=== PATIENT | female | born 1980 | race Caucasian/White ===

== ENCOUNTER → 2024-01-22 14:36 | Outpatient (REF) | payer BC, SELFPAY | LOC: WDC 14:36 | PROVIDERS: ATTENDING PHYSICIAN Nurse Practitioner Adult Health | DX: Z12.31 Encounter for screening mammogram for malignant neoplasm of breast (principal) | CPT/HCPCS: 77063; 77067 ==

== ENCOUNTER 2024-12-16 23:46 | Emergency (ER) | payer BC, SELFPAY ==
[2024-12-16 23:54] VITALS: BP 136/90
[2024-12-17 00:13] LABS: Urine Albumin 3+ (Neg - Trace); Urine Bilirubin Negative (Negative); Urine Character Bloody (Clear); Urine Color Red; Urine Glucose Negative (Negative); Urine Ketone Negative (Negative); Urine Leukocyte 2+ (Negative); Urine Nitrite Negative (Negative); Urine Occult Blood 4+ (Negative); Urine Urobilinogen Negative (Neg - 1+)
[2024-12-17 00:22] LABS: HCG, Serum Qualitative Screen Negative
[2024-12-17 00:26] LABS: Urine Red Blood Cell >100 /HPF (0-2); Urine White Cell 0-2 /HPF (0-5)
[2024-12-17 00:34] LABS: ALT (SGPT) 20 U/L (0-35); AST (SGOT) 26 U/L (14-36); Albumin 4.2 g/dl (3.5-5.0); Alkaline Phosphatase 70 U/L (38-126); Blood Urea Nitrogen 15 mg/dl (7-17); Calcium 9.4 mg/dl (8.4-10.2); Carbon Dioxide 24 mmol/L (22-30); Chloride 110 mmol/L (98-107); Glucose 93 mg/dl (70-99); Potassium 4.7 mmol/L (3.5-5.1); Sodium 141 mmol/L (135-145); Total Bilirubin 0.5 mg/dl (0.2-1.3); Total Protein 7.1 g/dl (6.3-8.2); eGFR > 60.00
[2024-12-17 00:36] LABS: % Basophils 0.5 % (0-2); % Eosinophils 2.3 % (0-6); % Immature Granulocytes 0.3 % (0-0.5); % Monocytes 5.2 % (1.7-9.3); % Neutrophils 59.7 % (42.2-75.2); Absolute Basophils 0.1 10^3/uL (0-0.2); Absolute Eosinophils 0.3 10^3/uL (0-0.7); Absolute Lymphocytes 3.8 10^3/uL (1.2-3.4); Absolute Monocytes 0.6 10^3/uL (0.1-0.6); Absolute Neutrophils 7.2 10^3/uL (1.4-6.5); Hematocrit 36.8 % (37.0-47.0); Hemoglobin 12.1 g/dL (12.0-16.0); Mean Corp Hgb Conc. 32.9 g/dL (33.0-37.0); Mean Corpuscular Hgb 25.7 pg (27.0-31.0); Mean Corpuscular Volume 78.3 fL (81.0-99.0); Mean Platelet Volume 10.7 fL (7.4-10.4); Nucleated Red Blood Cells % 0 %; Platelet Count 322 10^3/uL (130-400); Red Cell Dist. Width 13.2 % (11.5-14.5)
[2024-12-17 00:49] VITALS: BMI 27.5
--- NOTE | 2024-12-17 01:01 | ED.GENMED ---
History of Present Illness
General
Chief Complaint: Flank Pain
Source: patient
Time Seen by Provider: 12/17/24 00:26
History of Present Illness
History of Present Illness:
44-year-old female presents to the emergency room complaining of right flank pain. Patient states she developed pain last evening in the right flank which radiated down to her pelvis. It was mild. She had some increased urinary frequency and
thought perhaps she was developing a urinary tract infection. She was able to sleep and felt somewhat better this morning but this evening the pain returned and was quite severe. Nothing seems to make it better or worse. She has not had a fever.
She is nauseous. Patient also currently has her menstrual period. She took Advil 200 mg with minimal improvement. No significant change in bowel habits
Past History
Past History
ED Past Medical History: Other (Crohn's disease, anemia)
ED Past Surgical History: Appendectomy, Bowel resection, and Other (Lysis of adhesions for small bowel obstruction, liposuction and)
Social History
Tobacco: Non-smoker
Alcohol: Occasional
Drug: None
Living: with family
Employment: Employed
Family History
Family History: Negative Diabetes, Hypertension, Early CAD, Asthma or Cancer
Phy Exam
Physical Exam
Physical Exam:
General: Awake, Alert, Oriented X3. No acute distress.
Vitals: unremarkable
Head: Atraumatic
Eyes: Pupils equal, EOMI
Throat: Airway intact, no exudates
Neck: Trachea midline
Lungs: Clear and equal b/l
Heart: Regular rate, no murmurs
Abd: Soft, no tenderness to palpation, No pulsatile mass
Back: Mild left flank pain to percussion
Neuro: Nonfocal
Skin: Warm, dry, no rash
Extremities: pulses equal b/l, no edema
Course
Orders/Labs/Results
Orders:
Orders
12/16/24 23:57
Complete Blood Count/With Diff Urgent
Comprehensive Metabolic Panel Urgent
HCG, Serum Qualitative Screen Urgent
Urinalysis Urgent
Date Specimen was Collected: 12/16/24
Time Specimen was Collected: 23:58
12/16/24 23:58
Test Result ONCE
12/17/24 00:05
Urine Microscopic Urgent
Date Specimen was Collected: 12/16/24
Time Specimen was Collected: 23:58
12/17/24 01:00
CT Abd/pel Without Iv Or Oral Urgent
Comment:
Reason For Exam: right flank pain
0.9% Sodium Chloride 1000 ml [Nss] 1,000 ml IV BOLUS
HYDROmorphone [Dilaudid] 0.5 mg IV NOW STA
Ketorolac [Toradol] 15 mg IV NOW STA
Ondansetron Injectable [Zofran] 4 mg IV NOW STA
12/17/24 04:02
Oxycodone [Roxicodone] 5 mg PO NOW STA
12/17/24 04:10
HYDROmorphone [Dilaudid] 0.5 mg IV NOW STA
Abnormal Lab Results
12/17/24 12/17/24
00:02 00:05
WBC 12.0 H 10^3/uL
(4.8-10.8)
Hct 36.8 L %
(37.0-47.0)
MCV 78.3 L fL
(81.0-99.0)
MCH 25.7 L pg
(27.0-31.0)
MCHC 32.9 L g/dL
(33.0-37.0)
MPV 10.7 H fL
(7.4-10.4)
Absolute Neuts (auto) 7.2 H 10^3/uL
(1.4-6.5)
Absolute Lymphs (auto) 3.8 H 10^3/uL
(1.2-3.4)
Chloride 110 H mmol/L
(98-107)
Urine Occult Blood 4+ A
(Negative)
Ur Leukocyte Esterase 2+ A
(Negative)
Urine RBC >100 A /HPF
(0-2)
Urine Albumin 3+ A
(Neg - Trace)
12/17/24 00:02
12/17/24 00:02
Vital Signs
Initial and Last Documented VS:
Initial Vital Signs
Temp Pulse Resp BP Pulse Ox
97.7 F 76 20 136/90 100
12/16/24 23:54 12/16/24 23:54 12/16/24 23:54 12/16/24 23:54 12/16/24 23:54
Last Documented Vital Signs
Temp Pulse Resp BP Pulse Ox
97.7 F 72 16 113/73 98
12/16/24 23:54 12/17/24 02:20 12/17/24 02:20 12/17/24 02:20 12/17/24 02:20
MDM/Problems Addressed
Differential Diagnosis Includes:
Kidney stone, pyelonephritis, Crohn's flare
MDM/Problems Addressed:
Patient presents with significant right-sided flank pain. CT shows a 3 mm stone at the right UVJ. Labs show mild elevated white blood cell count, urinalysis shows hematuria but no signs of infection. Patient had improvement of her symptoms with
antiemetics and analgesics. Patient is stable for discharge home with prescriptions for Zofran and Percocet. Percocet was given because the information that appeared on the prescription ordering screening indicated, as ridiculous as it sounds,
that the oxycodone itself was not covered Percocet will be covered by the patient's insurance.
*Radiology
Radiology exam reviewed: other (Vision report shows 3 mm stone at the UVJ with hydro)
*Pulse Oximetry
Patient hypoxic: no
*Critical Care Note
Total Time (30-74mins, 75-104mins- exclusive of procedures): Not Applicable
ED Attending Note
-
Portions of this chart may have been created with voice recognition software.� Occasional wrong word or��sound alike� substitutions may have occurred due to the inherent limitations of voice recognition software.
Discharge Plan
Departure
Patient Disposition: Home (Routine Discharge)
Date of Disposition: 12/17/24
Time of Disposition: 04:10
Patient with high blood pressure during this ER visit?: No
Condition: Good
Discharge Problem:
Kidney stone
Instructions: Kidney Stones (DC)
Prescriptions:
New
oxycodone-acetaminophen [Percocet] 5-325 mg tablet
1 tab PO Q4HPRN PRN (Reason: pain) Qty: 14 0RF
ondansetron 4 mg tablet,disintegrating
4 mg PO Q8H PRN (Reason: nausea and vomiting) Qty: 14 0RF
Referrals:
Yadira Zuniga CRNP [Family Provider] -
Shay Hunter MD [Active] -
Activity Restrictions/Additional Instructions:
You are found to have a 3 mm kidney stone in the right ureter. This stone is of a size that should pass on its own. It may take couple days for that to happen. I have sent a prescription for oral pain medicine, Percocet which you can take every
4-6 hours for severe pain. You can take ibuprofen 600 mg every 6 hours for pain. I have also sent a prescription for Zofran which you can take 1 tablet every 8 hours for nausea. I given you contact information for a urologist, Dr. Hunter, who you
should call in the morning to make an appointment. You should return to the emergency room if you develop a fever before you pass the stone because this is a surgical emergency.
Interventions
Interventions:
*Risk Screen - Suicide Last Done: 12/16/24 23:54
*General Assessment Last Done: 12/17/24 01:24
*Neglect/Abuse Screening Last Done: 12/16/24 23:54
*ED COVID-19 Vaccine History Last Done: 12/17/24 01:24
*Nursing Disposition Last Done: 12/17/24 04:46
MP-Tbhwfc-Renpleuklh Assessment Last Done: 12/17/24 01:24
ED-Female Genitourinary Assessment Last Done: 12/17/24 01:24
Discharge Date and Time
Discharge Date/Time: 12/17/24 04:46
Print Language: [place]
[2024-12-17] MEDS: DILAUDID 0.5 MG IV ×2 (01:08→04:13)
[2024-12-17] MEDS: NSS 1000 IV (01:08)
[2024-12-17] MEDS: ZOFRAN 4 MG IV (01:09)
[2024-12-17] MEDS: TORADOL 15 MG IV (01:09)
[2024-12-17 02:20] VITALS: BP 113/73
[2024-12-17] MEDS: ROXICODONE 5 MG PO (04:40)
== END 2024-12-17 04:46 | disposition home or self-care (01) ==
LOC: EMR 23:46
PROVIDERS: EMERGENCY PHYSICIAN Emergency Medicine; FAMILY PHYSICIAN Nurse Practitioner Adult Health
DX: N20.0 Calculus of kidney (principal); K50.90 Crohn's disease, unspecified, without complications; D64.9 Anemia, unspecified; Z98.0 Intestinal bypass and anastomosis status; Z88.5 Allergy status to narcotic agent
CPT/HCPCS: 99284; 96374; 96375 ×2; 96361; 96376; 74176; 80053; 81003; 81015; 84703; 85025

== ENCOUNTER 2024-12-17 21:58 | Emergency (ER) | payer BC, SELFPAY ==
[2024-12-17 22:01] VITALS: BP 99/69
[2024-12-17 22:13] LABS: % Basophils 0.6 % (0-2); % Eosinophils 2.2 % (0-6); % Immature Granulocytes 0.2 % (0-0.5); % Lymphocytes 24.8 % (20.5-51.1); % Monocytes 6.1 % (1.7-9.3); % Neutrophils 66.1 % (42.2-75.2); Absolute Basophils 0.1 10^3/uL (0-0.2); Absolute Eosinophils 0.2 10^3/uL (0-0.7); Absolute Lymphocytes 2.6 10^3/uL (1.2-3.4); Absolute Monocytes 0.6 10^3/uL (0.1-0.6); Hematocrit 33.3 % (37.0-47.0); Hemoglobin 10.8 g/dL (12.0-16.0); Mean Corp Hgb Conc. 32.4 g/dL (33.0-37.0); Mean Corpuscular Hgb 25.5 pg (27.0-31.0); Mean Corpuscular Volume 78.7 fL (81.0-99.0); Mean Platelet Volume 10.5 fL (7.4-10.4); Nucleated Red Blood Cells % 0 %; Platelet Count 294 10^3/uL (130-400); Red Blood Cell Count 4.23 10^6/uL (4.20-5.40); Red Cell Dist. Width 13.4 % (11.5-14.5); White Blood Cell Count 10.5 10^3/uL (4.8-10.8)
[2024-12-17 22:27] LABS: ALT (SGPT) 17 U/L (0-35); AST (SGOT) 24 U/L (14-36); Albumin 3.5 g/dl (3.5-5.0); Alkaline Phosphatase 53 U/L (38-126); Blood Urea Nitrogen 14 mg/dl (7-17); Calcium 8.7 mg/dl (8.4-10.2); Carbon Dioxide 26 mmol/L (22-30); Chloride 110 mmol/L (98-107); Glucose 96 mg/dl (70-99); Potassium 4.4 mmol/L (3.5-5.1); Sodium 138 mmol/L (135-145); Total Bilirubin 0.5 mg/dl (0.2-1.3); Total Protein 6.3 g/dl (6.3-8.2); eGFR > 60.00
[2024-12-18 00:30] VITALS: BMI 27.5
--- NOTE | 2024-12-18 01:02 | ED.GENMED ---
History of Present Illness
General
Chief Complaint: Fever
Time Seen by Provider: 12/18/24 01:02
History of Present Illness
History of Present Illness:
TIME OF INITIAL ENCOUNTER: 1 AM
HPI: The patient was seen here about 24 hours ago with ureteral stone. Today, she developed headache and temperature to 99.7. She had been taking Advil. She currently feels somewhat improved and no longer has any flank pain. She has had some
tension in the back of her neck. She was told to return here if she develops a fever. No rashes, no UTI symptoms, no pneumonia symptoms.
EXAM:
GENERAL: Well appearing in no distress
HEENT: Moist oral mucosa, normal chin to chest, no meningeal signs, negative Kernig's, negative Brudzinski's signs
CARDIOVASCULAR: No murmurs, normal heart rate, regular rhythm, No chest wall tenderness
PULMONARY: No respiratory distress, breath sounds are clear and equal
ABDOMEN: Soft with no peritoneal signs, no tenderness
NEUROLOGIC: Excellent strength all extremities, no coordination deficits
PSYCHIATRIC: Appropriate mental status, normal insight and judgement
EXTREMITIES: Nontender, no edema, moves all extremities equally
SKIN: No rash, no lesions
NUMBER AND COMPLEXITY OF PROBLEMS ADDRESSED AT THE ENCOUNTER
� Chronic conditions affecting care: Bowel obstruction, Crohn's disease, has had lysis of adhesions related to bowel obstruction
� Acute Exacerbation and/or Progression of Chronic Illness: This is an acute problem
� Differential Diagnosis includes: Viral syndrome, tension headache, highly doubt pneumonia, no meningeal signs to suggest meningitis and she has excellent mental status
AMOUNT AND/OR COMPLEXITY OF DATA TO BE REVIEWED AND ANALYZED
� I performed an independent evaluation of and my interpretation is:
EKG:
CT:
X-rays:
Laboratory Studies: White count 10.5, hemoglobin 12.8, GFR greater than 60
Other:
� Review of other/old records: The white blood cell count 24 hours ago was slightly high at 12.0, currently it is 10.5, urinalysis does not show any signs of infection yesterday. Yesterday CT showed 3 mm right UVJ stone.
� Clinical information was obtained by an independent historian: I spoke to family at bedside
� Prescriptions/Medications Considered but not given:
� Further testing considered but not performed:
RISK OF COMPLICATIONS AND/OR MORBIDITY OR MORTALITY OF PATIENT MANAGEMENT
� Social determinants of health affecting care: Lives at home
� Discussion with other providers:
� Escalation of care including admission/observation vs risk of discharge considered: The patient is well-appearing. She is currently afebrile. White blood cell count is lower now than it was earlier.
ANY OTHER UPDATES:
2 AM: No evidence of urinary tract infection based on urinalysis. She is well-appearing on reassessment. Low blood pressure again noted however heart rate is in the 60s and she is afebrile.
Past History
Past History
ED Past Medical History: Other (Crohn's disease, anemia)
ED Past Surgical History: Appendectomy, Bowel resection, and Other (Lysis of adhesions for small bowel obstruction, liposuction and)
Social History
Tobacco: Non-smoker
Alcohol: Occasional
Drug: None
Living: with family
Employment: Employed
Family History
Family History: Negative Diabetes, Hypertension, Early CAD, Asthma or Cancer
Phy Exam
Physical Exam
Physical Exam:
See HPI
Course
Orders/Labs/Results
Orders:
Orders
12/17/24 22:06
Complete Blood Count/With Diff Urgent
Comprehensive Metabolic Panel Urgent
12/18/24 01:23
Urinalysis Reflex To Culture Urgent
Date Specimen was Collected: 12/18/24
Time Specimen was Collected: 01:10
Urine Microscopic Reflex Cult Urgent
Abnormal Lab Results
12/17/24 12/18/24
22:06 01:23
Hgb 10.8 L g/dL
(12.0-16.0)
Hct 33.3 L %
(37.0-47.0)
MCV 78.7 L fL
(81.0-99.0)
MCH 25.5 L pg
(27.0-31.0)
MCHC 32.4 L g/dL
(33.0-37.0)
MPV 10.5 H fL
(7.4-10.4)
Absolute Neuts (auto) 7.0 H 10^3/uL
(1.4-6.5)
Chloride 110 H mmol/L
(98-107)
Creatinine 1.1 H mg/dL
(0.6-1.0)
Ur Occult Blood Reflex 4+ A
(Negative)
Urine RBC 3-6 A /HPF
(0-2)
12/17/24 22:06
12/17/24 22:06
Vital Signs
Initial and Last Documented VS:
Initial Vital Signs
Temp Pulse Resp BP Pulse Ox
37.0 C 83 16 99/69 100
12/17/24 22:01 12/17/24 22:01 12/17/24 22:01 12/17/24 22:01 12/17/24 22:01
Last Documented Vital Signs
Temp Pulse Resp BP Pulse Ox
37.0 C 62 16 102/59 99
12/17/24 22:01 12/18/24 02:02 12/18/24 02:02 12/18/24 02:02 12/18/24 02:02
*Critical Care Note
Total Time (30-74mins, 75-104mins- exclusive of procedures): Not Applicable
ED Attending Note
-
Portions of this chart may have been created with voice recognition software.� Occasional wrong word or��sound alike� substitutions may have occurred due to the inherent limitations of voice recognition software.
Discharge Plan
Departure
Patient Disposition: Home (Routine Discharge)
Date of Disposition: 12/18/24
Time of Disposition: 02:04
Patient with high blood pressure during this ER visit?: No
Discharge Problem:
Acute viral syndrome
Instructions: Fever in adults - ED discharge instructions
Prescriptions:
No Action
oxycodone-acetaminophen [Percocet] 5-325 mg tablet
1 tab PO Q4HPRN PRN (Reason: pain) Qty: 14 0RF
ondansetron 4 mg tablet,disintegrating
4 mg PO Q8H PRN (Reason: nausea and vomiting) Qty: 14 0RF
Referrals:
Yadira Zuniga CRNP [Family Provider] -
Activity Restrictions/Additional Instructions:
The white blood cell count currently is normal and lower than it was yesterday. The urinalysis does not show any signs of infection. Some blood is still noted which is expected with kidney stones. Return here if worse or other concerns.
Interventions
Interventions:
*Risk Screen - Suicide Last Done: 12/17/24 22:03
*General Assessment Last Done: 12/18/24 00:30
*Neglect/Abuse Screening Last Done: 12/17/24 22:03
*ED COVID-19 Vaccine History Last Done: 12/18/24 00:30
ED- Neurological Assessment Last Done: 12/18/24 01:26
ED-Skin Assessment Last Done: 12/18/24 01:26
Discharge Date and Time
Print Language: [place]
[2024-12-18 01:41] LABS: Urine Albumin Negative (Neg - Trace); Urine Bilirubin Negative (Negative); Urine Character Slightly Cloudy (Clear); Urine Color Yellow; Urine Glucose Negative (Negative); Urine Ketone Negative (Negative); Urine Leukocyte Negative (Negative); Urine Nitrite Negative (Negative); Urine Occult Blood 4+ (Negative); Urine Urobilinogen Negative (Neg - 1+)
[2024-12-18 01:48] LABS: Urine Squamous Cell >30 /LPF (Few)
[2024-12-18 02:02] VITALS: BP 102/59
== END 2024-12-18 02:17 | disposition home or self-care (01) ==
LOC: EMR 21:58
PROVIDERS: EMERGENCY PHYSICIAN Emergency Medicine; FAMILY PHYSICIAN Nurse Practitioner Adult Health
DX: B34.9 Viral infection, unspecified (principal); K50.90 Crohn's disease, unspecified, without complications; Z82.49 Family history of ischemic heart disease and other diseases of the circulatory system; Z90.49 Acquired absence of other specified parts of digestive tract
CPT/HCPCS: 99283; 80053; 81003; 81015; 85025

== ENCOUNTER → 2025-03-26 12:35 | Outpatient (REF) | payer OTHER, BC, SELFPAY | LOC: WDC 12:35 | PROVIDERS: ATTENDING PHYSICIAN Nurse Practitioner Adult Health | DX: Z12.31 Encounter for screening mammogram for malignant neoplasm of breast (principal) | CPT/HCPCS: 77063; 77067 ==

== ENCOUNTER → 2025-07-10 14:25 | Outpatient (REF) | payer OTHER, BC, SELFPAY | LOC: HWRAD 14:25 | PROVIDERS: ATTENDING PHYSICIAN Advanced Practice Midwife; FAMILY PHYSICIAN Nurse Practitioner Adult Health | DX: D21.9 Benign neoplasm of connective and other soft tissue, unspecified (principal) | CPT/HCPCS: 76830; 76856 ==